=== PATIENT | female | born 1965 ===

== ENCOUNTER 2017-05-08 23:47 | Inpatient (IN) | payer OTHER ==
[~2017-05-08] VITALS: Ht 172.7 cm; Wt 71.1 kg
--- NOTE | ~2017-05-08 | EC ---
PATIENT:MALOU BROWN DATE OF SERVICE: 05/09/17 SEX: F MEDICAL RECORD: [id number] DATE OF : 61 LOCATION:[facility] D230 AGE OF PATIENT: 51 ADMISSION DATE: 05/09/17 REFERRING PHYSICIAN: INTERPRETING PHYSICIAN: ERNST ALEJANDRO M.D. ECHOCARDIOGRAM REPORT ECHO CHARGES 4 ECHO COMPLETE CLINICAL DIAGNOSIS: OVERDOSE/RESP/ HX OF HTN/PULMONARY HTN/HEART MURMUR ECHOCARDIOGRAPHIC MEASUREMENTS (adult normal given) AC root (d.<3.7cm) 3.2 LV Septum d (<1.2 cm> 1.5 Valve Excursion 2.0 LV Septum (systole) 1.7 Left Atria (s.<4.0cm> 4.1 LVPW d(<1.2cm) 1.6 RV (d.<2.3cm) 3.5 LVPW (sytole) 1.8 LV diastole(<5.6CM) 5.1 MV E-F(>70mm/sec) LV systole 3.5 LVOT Diameter 1.9 MV exc.(>10mm) 1.4 Est.ejection fraction (50-75%) Pericardial Effusion N DOPPLER: LVIT A 86.0 E 106 LA RVSP 26 LVOT 100 AOP1/2T 816 Asc. Ao 159 RVOT 82 RA PA 107 AV Gradient Peak 10.06 AV Mean 5.48 AV Area 1.7 MV Gradient Peak 6.36 MV Mean 2.47 MV Area COMMENTS: Roadway Technician: Malia SRINIVASAN Procurement Officer:1 Dr. Curtis TAPE# PACS DATE OF SERVICE: 05/12/2017 REFERRING PHYSICIAN: Dr. Sen. INDICATION: Heart murmur. DESCRIPTION: Left ventricle demonstrates left ventricular hypertrophy. No wall motion abnormalities are noted. Estimated ejection fraction is 55%. Mitral valve is structurally normal. There is mild regurgitation noted. Left atrium is mildly dilated. The aortic valve is trileaflet. There is mild to moderate ECHOCARDIOGRAM REPORT [id number] MALOU BROWN insufficiency seen. There is no evidence of stenosis. Right ventricle is mildly dilated. Tricuspid valve is structurally normal. There is mild regurgitation seen. Right atrium is normal size. There is no pericardial effusion noted. IMPRESSION: 1. Left ventricular hypertrophy with preserved ejection of 55%. 2. Mild mitral regurgitation. 3. Mild to moderate aortic insufficiency. 4. Mild tricuspid regurgitation. TRANSINT:[id number] Voice Confirmation ID: [id number] DOCUMENT ID: [id number] ERNST ALEAJNDRO M.D. CC: [id number] DICTATION DATE: 05/12/171841 RANCH RIDER: 05/12/17 2354 DIS IN 05/12/17 [facility] [address] [id number]
[2017-05-09] VITALS (23 sets, daily range): BP systolic 109–143; BP diastolic 71–98; Ht 172.7 cm; Wt 71.1 kg
[2017-05-09 00:30] LABS: BASOPHILS 0.3 % (0-2); EOSINOPHILS 1.1 % (0-7); HEMATOCRIT 43.3 % (36.0-48.0); HEMOGLOBIN 15.3 g/dL (12-16); IMMATURE GRANULOCYTES 0.2 % (0-5); LYMPHOCYTES 37.6 % (15-50); MCH 31.1 pg (26.0-34.0); MCHC 35.3 g/dL (31.0-37.0); MEAN PLATELET VOLUME 9.2 fL (7.4-10.4); MONOCYTES 6.8 % (2-11); PLATELET COUNT 253 10x3/uL (130-400); RBC 4.92 10x6/uL (4.00-5.40); RDW 13.1 % (11.5-14.5); WBC 6.6 10x3/uL (4.8-10.8)
[2017-05-09 00:34] LABS: APPEARANCE CLEAR (CLEAR); COLOR DK YELLOW (YELLOW)
[2017-05-09 00:35] LABS: BILIRUBIN 1+ (NEGATIVE); GLUCOSE NEGATIVE (NEGATIVE); KETONE NEGATIVE (NEGATIVE); LEUKOCYTE ESTERASE NEGATIVE (NEGATIVE); NITRITE NEGATIVE (NEGATIVE); PROTEIN NEGATIVE (NEGATIVE); UROBILINOGEN NORMAL (NORMAL)
[2017-05-09 00:45] LABS: UDS - AMPHET NEGATIVE QUAL (NEGATIVE); UDS - BARB NEGATIVE QUAL (NEGATIVE); UDS - BENZO POSITIVE QUAL (NEGATIVE); UDS - COCAINE NEGATIVE QUAL (NEGATIVE); UDS - METH NEGATIVE QUAL (NEGATIVE); UDS - OPIATE POSITIVE QUAL (NEGATIVE); UDS - PCP NEGATIVE QUAL (NEGATIVE); UDS - THC NEGATIVE QUAL (NEGATIVE)
[2017-05-09 00:53] LABS: ALBUMIN 3.6 g/dL (3.4-5.0); ALKALINE PHOSPHATASE 98 U/L (46-116); ALT (SGPT) 27 U/L (10-68); CALC OSMOLALITY 288 mosm/kg (275-300); CARBON DIOXIDE 22.9 mmol/L (21.0-32.0); CHLORIDE - SERUM 106 mmol/L (98-107); CREATININE - SERUM 0.7 mg/dL (0.6-1.3); GLUCOSE 128 mg/dL (74-106); POTASSIUM - SERUM 3.3 mmol/L (3.5-5.1); PROTEIN - SERUM 7.3 g/dL (6.4-8.2); SODIUM 143 mmol/L (136-145); UREA NITROGEN 18 mg/dL (7-18); eGFR NON AFRICAN AMERICAN > 90 mL/min (90-120)
--- NOTE | 2017-05-09 04:00 | NUR ---
0400: Pt rec'd from ER via STR and placed in room 2309 x4 RNs. All monitors established and alarms set.
--- NOTE | 2017-05-09 04:15 | NUR ---
0415: Pt thrashing in bed from side to side. Pt does not follow commands. Pt arrived from ER sedated with Diprivan at max 75 mcg/kg/min. Pt moves x4 extrem vs gravity and pulls vs restraints. Pupils CARLIE+ bilat. Breathing via 8.0fr/23cm ETT with Vent AC TV550 R16 FIO2 30 P5. Pt RR 16-18x with SPO2 99%. Lungs clear bilat with auscultation. MMP and no cyanosis noted. S1S2 ST 100 bpm on CM. PPPx4=bilat. ABD soft NT BS active x4. OGT to LIS with minimal return. Clancy to gravity >30 cc/hr yellow UOP. SR up x2, Bed Alarm on, SCDs in room not placed at this time bc of pt aggitation.
--- NOTE | 2017-05-09 04:30 | NUR ---
0430: Increased Diprivan to 100 mcg/kg/hr. Pt remains thrashing in bed side to side and pulling at line and tubes.
--- NOTE | 2017-05-09 06:00 | NUR ---
0600: Pt belongings rec'd from ER. Pt has belongings bag with shoes, pants, and shirt. Pt had number of medications counted by ER and sent pharm. Pharm list placed on chart.
[2017-05-09] MEDS ORDERED: NEURONTIN 300300 MG PO (10:47)
[2017-05-09] MEDS ORDERED: FUROSEMIDE40 MG PO (10:48)
[2017-05-09] MEDS ORDERED: VISTARIL50 MG PO (10:51)
[2017-05-09] MEDS ORDERED: CYCLOBENZAPRINE5 MG PO (10:52)
[2017-05-09] MEDS ORDERED: LISINOPRIL5 MG (10:53)
[2017-05-09] MEDS ORDERED: MOBIC7.5 MG PO (10:54)
[2017-05-09] MEDS ORDERED: ZOLOFT50 MG PO (10:54)
[2017-05-09] MEDS ORDERED: TESSALON PERLE100 MG PO (10:54)
[2017-05-09] MEDS ORDERED: NEXIUM40 MG (10:55)
[2017-05-09] MEDS ORDERED: ZYLOPRIM100 MG PO (10:55)
[2017-05-09] MEDS ORDERED: REMERON30 MG PO (10:56)
[2017-05-09] MEDS ORDERED: CYCLOBENZAPRINE5 MG (10:56)
[2017-05-09] MEDS ORDERED: COLCRYS0.6 MG PO (10:56)
[2017-05-09] MEDS ORDERED: VENTOLIN HFA18 GM INH (11:05)
[2017-05-09] MEDS ORDERED: BENADRYL25 MG PO (11:12)
[2017-05-09] MEDS ORDERED: ELLIPTA (11:16)
[2017-05-09] MEDS ORDERED: BREO ELLIPTA 11 EACH INH (11:17)
[2017-05-09] MEDS ORDERED: LEVOXYL150 MCG PO (13:41)
[2017-05-09] MEDS ORDERED: NORCO 7.5/325 T1 TA1 PO (13:43)
[2017-05-09] MEDS ORDERED: AMITRIPTYLINE H50 MG PO (13:44)
--- NOTE | 2017-05-09 13:53 | NUR ---
OPEN EYES RANDOMLY, MOVES ALL EXTREMITES. DOSE MAKE EYE CONTACT. LESS RESTLESS AND AGITIATED WITH FENTANYL GTT AT 100 MCG HOUR . DIPRIVAN AT 50 MCG KG MIN. ATIVAN EARLY IN SHIFT HAD NO EFFECT ON PATIENT. CONTINUED TO BE RESTLESS. ETT SECURE TO VENT WILL BREATH OVER THE VENT WHEN AGITATED. BILATERAL LUNG SOUNDS EQUAL AND CLEAR, ETT ADVANCED TO 26 CM. AND NG TUBE ADVACED. ORAL NG TUBE WITH BROWN, RED DRAINAGE, GOOD AIR HEARD IN ABD. SMALL AMOUNT OF DRAINAGE FROM NG TUBE. FLUSHES WITHOUT DIFFICULTY. ABD SOFT WITH BOWEL SOUNDS PRESENT. NO SKIN BREAKDOWN NOTED. COMPLETED BED BATH GIVEN. LINEN CHANGED. SCD ON LOWER LEGS. IV RIGHT FOREARM INFUSING WITH NS AT 200 ML HOUR, NOW A BANANA BAG AT 125 MG HOUR INFUSING. NO REDNESS OR SWELLING NOTED. FRANCIS CATH PATENT AND DRAINING CLOUDY CORINNA URINE. MOTHER AND FATHER AND DAUGHTER HERE QUESTIONS ANSWERED. HISTORY PROVIDED. MONITOR SR.
--- NOTE | 2017-05-09 20:00 | NUR ---
2000: Pt with occasional periods of thrashing in bed. Pt nods head to questions and indicates she her hips are hurting. Pt respositioned with pillow support. Increased Fentanyl for pain control.
--- NOTE | 2017-05-09 22:00 | NUR ---
2200: Pt coughing and vent alarm sounding. Increased Peak Pressures seen. In line sx produces scant amount of clear sx return. VAP tube sx with no return. oral care done.
--- NOTE | 2017-05-09 23:00 | NUR ---
2300: Clancy and [facility] [place] completed.
[2017-05-10] VITALS (18 sets, daily range): BP systolic 91–142; BP diastolic 60–85
--- NOTE | 2017-05-10 04:00 | NUR ---
0400: Cont to titrate Diprivan and Fentanyl for sedation. Pt easily awoken to slightest stimuli. Pt nods head to questions, but does not follow all commands. Pt will return to resting with eyes closed with reduced stimulation.
--- NOTE | 2017-05-10 05:00 | NUR ---
0500: Pt awake on vent with Diprivan and Fentanyl infusing. Pt indicates that she is allergic to Zofran and her back is itching. Pt repositioned for comfort, back rubbed. Pt moving self in bed. Pt will pull at wires and tubes though and remains in bilateral soft wrist restraints to prevent accidental removal of medically neccassary equipment.
--- NOTE | 2017-05-10 10:48 | NUR ---
ALL SEDATION TURNED OFF, PATIENT WAS PLACED ON CPAP PER VENT. EXTUBED WITHOUT DIFFICULTY PATIENT DEMANDING WANTS TO GO AND SMOKE, NICADERM PATCH ORDER AND PLACED ON LEFT UPPER ARM.EXPLAIN THERE IS NO SMOKING IN HOSPITAL. SHE CAN NOT LEAVE TO SMOKE. STATES SHE IS AGITATED AND HER BACK IS HURTING WANTS SOMETHING. DEMANDS FRANCIS BE REMOVED. FRANCIS ALFREDO WADE'Kaitlin. PATIENT FOUND UP OUT OF BED PUTTINGHER PANTIES ON WANTING A PHONE. AND HER MEDICATIONS. INFORMED THAT HER MEDS WHERE LOCKED UP AND SHE COULD GET THEM THURSDAY MORNING. WANTS TO KNOW WHAT TIME. NORCO 7.5 WITH TYLENOL GIVEN FOR BACK PAIN. HAIR BRUSHED PROVIDED TO BRUSH HER HAIR. WANTS MUCINEX FOR HER COUGH. DIET COLA PROVIDED. DRINKING WITHOUT DIFFICULTY SWALLOWING. SITTING UP IN BED . WARM BLANKET PROVIDED FOR COMFORT. EYE GLASSES PROVIDED AND HER DENTURES.
--- NOTE | 2017-05-10 12:01 | NUR ---
CALLED Courtney Gutiérrez HE STATES THAT HE HAS HER PURSE AND VALUABLES. STATES THAT HE TOLD HER MOTHER LAST NIGHT THAT HE HAD HER PURSE HE STATES THAT THE HOSPITALWOULD NOT LET HIS DAUGHTER LEAVE HER PURSE OR CLOTHES. PATIENT INFORMED THAT HER HAS HER PURSE. PATIENT IS CONCERN THAT HER RINGS ARE IN THERE. INSTRUCED TO DISCUSS WITH HER MOTHER BEFORE WE CALL HIM BACK.
--- NOTE | 2017-05-10 12:15 | NUR ---
DRINK DIET COKE AND ATE SOME PUDDING WITHOUT ANY DIFFICULTY SWALLOWING. VERY TALKATIVE. AND NERVOUS ACTING. VOIDED 200 CC DARK CORINNA URINE ON BSC
--- NOTE | 2017-05-10 13:31 | NUR ---
PATIENT DEMANDS IV BE TAKEN OUT SHE DOES NOT WANT. STATES SHE IS LEAVING HERE IN [address] VIRK PAGED. IV DC'S
--- NOTE | 2017-05-10 13:42 | NUR ---
vIs the patient Alert and Oriented? Yes 0 * How many steps to enter\exit or inside your home? Five 0 * PCP Denies having a PCP 0 * Pharmacy [facility] [place] 0 * Preadmission Environment Home with Family 0 * ADLs Independent 0 * Equipment Cane Nebulizer Oxygen 0 * Other Equipment patient states she has oxygen and nebulizer at home. States she walks w/ a cane due to arthritis occasionally 0 * List name and contact numbers for known caregivers / representatives who currently or will assist patient after discharge: Shivani Suárez- [facility]- [phone] 0 * Community resources currently utilized Other 0 * Please name any agencies selected above. [facility] in [place], [place] 0 * Additional services required to return to the preadmission environment? Yes 0 * Can the patient safely return to the preadmission environment? No 0 * Has this patient been hospitalized within the prior 30 days at any hospital? No 0
--- NOTE | 2017-05-10 13:43 | NUR ---
Met with the patient at the bedside. She was extubated at approximately noon. She is alert and sitting on the side of the bed. She knows where she is and is planning to go home at discharge. She states she harriet be going to her mothers in [facility]. Address [address] She says she is from her at this time. Anthony Chong is her second . His contact number is [phone]. She denies having a PCP. Denied any specialist but when questioned about counseling services states she sees MS Alan at [facility]. When questioned regarding DME stated she has O2 and a nebulizer. She has an appointment w/ [facility] "coming up". States she ambulates w/ a cane occasionally. Pharmacy - [facility] Patient wanted her 's phone number. CM stated he must give permission for her to have his number as they are . She now states she lives w/ him in [place], [place]. She now states that is where she is going at discharge. SHELLIE explained she will need to have a psych consult as her attempt was serious. SHELLIE also explained she was just extubated and we would need to follow her pulmonary status. Reminded her that DR Sen will be rounding to see her. She is wanting to leave. She says she understands. Stating she wants to speak with her because she wants him to pick her up. She states he also has her cell phone and purse. SHELLIE spoke with the primary nurse regarding above. She has spoken w/ the on the phone. The stated he had spoken with the pt's mother regarding plans. The stepdaughter reportedly wanted to have patient committed for mental health services and rehab. Awaiting the mother's visit today.
--- NOTE | 2017-05-10 14:22 | NUR ---
DRY HEAVING AND COMPLAINTING OF NAUSEA NOT SURE SHE CAN HOLD DOWN PILL ATIVAN 1 MG GIVEN, DR. VIRK NOTIFIED. PHENERGAN 25 MG Q 6 HOURS PRN IM ORDERED AND GIVEN. ORDER AND FACE SHEET FOR PSYCH CONSULT SENT TO [facility]
--- NOTE | 2017-05-10 16:32 | NUR ---
PATIENT TRYING TO LEAVE,PUTTING HER SHOES ON. REMOVED HER NICODEARM PATCH AND CONTINOUSLY REMOVING THE DELPHI PROGRAMMER STATES ITS ITCHING. REFUSED BATH. ORALCARE DONE DEODARANT PROVIDED. CONSTANTLY ON MOVE. DR. VIRK NOTIFIED STATES TO PUT HER ON 72 HOUR HOLD UNTIL PSYCH EVAL AND RECOMMENDATIONS ARE DONE TOMORROW. STATES SHE NEEDS SOMETHING DENIES EVER RECEIVING ANY VALIUM OR ANY OTHER MEDS. HALDOL 5 MG AND ATIVAN 1 MG PO GIVEN WITH WITNESS RADHA SNYDER. SECURITY AT PATIENT DOOR.
--- NOTE | 2017-05-10 17:10 | NUR ---
CM received telephone call from Denisa Shay, patient's daughter. CM had tried to return her request for call earlier. No answer at that time. The daughter wants her mother to go for drug rehab. She stated she has had a substance abuse problem for sometime and has never sought help. Denisa is 22 yrs old and she has a brother 19 years of age. She is very concerned about her mother. She states the patient has been for 1 1/2 - 2yrs. She does not think her mother has a PCP. She is not certain how she obtains her medications. She thinks the patient may take her 's meds. Discussed the family going to the attorney lawyer's office regarding commitment for drug rehab. There reportedly has been some discussion regarding the above. Denisa is not certain of the plan of pt's parents and her .
--- NOTE | 2017-05-10 18:06 | NUR ---
SUPPER TRAY SERVED PATIENT NOT WANTING TO EAT RIGHT NOW. LET TRAY IN ROOM FOR LATER. PATIENT WANTS HER IV RESTARTED TAKING PO FLUIDS WELL. PATIENT IS VERY ACTIVE IN ROOM.
--- NOTE | 2017-05-10 18:43 | NUR ---
COMPLIANTED OF NAUSEA [id number] MG IM GIVEN LEFT HIP. TAKING PO FLUIDS WELL
--- NOTE | 2017-05-10 19:00 | NUR ---
REPORT RECIEVED, INITIAL ASSESSMENT COMPLETE, PLEASE SEE FLOW SHEETS FOR DETAILS. C/O NV, CURRENTLY NAUSEATED. DENIES ANY PAIN/NEEDS ATT. BED LOW AND LOCKED, CALL LIGHT IN REACH. VSS ATT, WILL CPOC.
--- NOTE | 2017-05-10 20:10 | NUR ---
PAGED TANK COOPER DR FOR DR VIRK TO OK PT TO BE ON ELECTROLYTE PROTOCOL TO REPLACE LOW K+.
--- NOTE | 2017-05-10 20:16 | NUR ---
PER SYLVIA HYATT TO DC PAPCID AND TO PUT PT ON ELECTROLYTE PROTOCOL.
--- NOTE | 2017-05-10 20:19 | NUR ---
PER DR VIRK ORDER PO PEPCID 20MG BID.
--- NOTE | 2017-05-10 20:57 | NUR ---
PT TOOK MEDS WILLINGLY, DENIES ANY NEEDS ATT. ELECTROLYTE PROTOCOL FOLLOWED ATT. BED LOW AND LOCKED, CALL LIGHT IN REACH. WILL CPOC.
--- NOTE | 2017-05-10 23:00 | NUR ---
PT WATCHING TV. C/O PAIN, WILL GIVE PAIN MEDS PER ORDERS. VSS, BED LOW AND LOCKED, CALL LIGHT IN REACH. DENIES ANY OTHER NEEDS ATT. WILL CPOC.
--- NOTE | 2017-05-11 01:04 | NUR ---
PT C/O NAUSEA, GAVE PHENOGREN ORDERED.
--- NOTE | 2017-05-11 02:01 | NUR ---
PRBC STARTED. VSS. DENIES PAIN/NEEDS ATT. BED LOW AND LOCKED, CALL LIGHT IN REACH. WILL CPOC.
[2017-05-11 03:00] VITALS: BP 96/55
--- NOTE | 2017-05-11 03:57 | NUR ---
PT SLEEPING, NO S&S OF ACUTE DISTRESS NOTED. BED LOW AND LOCKED, CALL LIGHT IN REACH WILL CPOC.
[2017-05-11 05:23] LABS: BASOPHILS 0.1 % (0-2); EOSINOPHILS 1.4 % (0-7); HEMATOCRIT 36.6 % (36.0-48.0); HEMOGLOBIN 12.4 g/dL (12-16); IMMATURE GRANULOCYTES 0.3 % (0-5); LYMPHOCYTES 30.9 % (15-50); MCH 30.8 pg (26.0-34.0); MCHC 33.9 g/dL (31.0-37.0); MEAN PLATELET VOLUME 9.9 fL (7.4-10.4); MONOCYTES 5.7 % (2-11); NEUTROPHILS 61.6 % (40-80); PLATELET COUNT 211 10x3/uL (130-400); RBC 4.02 10x6/uL (4.00-5.40); RDW 13.5 % (11.5-14.5); WBC 7.8 10x3/uL (4.8-10.8)
--- NOTE | 2017-05-11 05:41 | NUR ---
PROVIDED PT FRESH GOWN, TOP SHEET, AND BLANKET PER REQUEST. PT ALSO C/O SHAKING, WILL GIVE ATIVAN PER ORDERS. BED LOW AND LOCKED, CALL LIGHT IN REACH. WILL CPOC.
[2017-05-11 06:04] LABS: CALC OSMOLALITY 275 mosm/kg (275-300); CALCIUM 8.3 mg/dL (8.5-10.1); CARBON DIOXIDE 26.8 mmol/L (21.0-32.0); CHLORIDE - SERUM 109 mmol/L (98-107); CREATININE - SERUM 0.3 mg/dL (0.6-1.3); POTASSIUM - SERUM 3.5 mmol/L (3.5-5.1); SODIUM 140 mmol/L (136-145); UREA NITROGEN 6 mg/dL (7-18); eGFR NON AFRICAN AMERICAN > 90 mL/min (90-120)
[2017-05-11 06:06] LABS: GLUCOSE 74 mg/dL (74-106)
[2017-05-11 07:00] VITALS: BP 125/68
--- NOTE | 2017-05-11 07:00 | NUR ---
PT AWAKE ALERT AND ORIENTED X4. COMPLAINS OF MILD ANXIETY BUT MOOD APPEARS TO BE STABLE AT THIS TIME. NORMAL SINUS ON MONITOR. PT IS UP AD FERNANDO AT THIS TIME AND ABLE TO USE BEDSIDE COMMODE WITHOUT DIFFICULTY. PT ON ROOM AIR AND IS HAVING NO SIGNS OF RESPIRATORY DISTRESS. COMPLETE SHIFT ASSESSMENT DOCUMENTED PER FLOWSHEET. WILL CONTINUE TO MONITOR CLOSELY.
--- NOTE | 2017-05-11 09:00 | NUR ---
PT SITTING UP EATING BREAKFAST INDEPENDENTLY. NO DEFICITS NOTED AND TOLERATING REGULAR DIET. WILL CONTINUE TO MONITOR
--- NOTE | 2017-05-11 10:28 | NUR ---
NUTRITION MONITORING & EVAL CHART REVIEWED, NURSING REPORTS PT EXTUBATED, TOLERATING REG DIET. WILL CONTINUE TO PROVIDE DIET, HONOR FOOD PREFERENCES. RD FOLLOWING
[2017-05-11 11:00] VITALS: BP 124/66
[2017-05-11 15:00] VITALS: BP 122/68
--- NOTE | 2017-05-11 15:00 | NUR ---
DR VRIK ROUNDED ON PT. CANDI WITH CASE MANAGEMENT CONTACTED [facility]. WAITING FOR APPROVAL TO SEND PT. WILL CONTINUE TO [facility]. PT APPEARS TO HAVE MILD ANXIETY AT THIS TIME BUT REMAINS STABLE. NO FURTHER CHANGES
--- NOTE | 2017-05-11 15:11 | NUR ---
05/11/2017 15:07 DCP: Discharge Planning Patient is agreeable to inpatient psych placement - referral faxed and called to No with [facility]. Waiting determination. CM will follow.
[2017-05-11 19:00] VITALS: BP 115/79
--- NOTE | 2017-05-11 19:00 | NUR ---
SHIFT ASSESSMENT COMPLETE. PT ALERT AND ORIENTED TO TIME, PLACE AND SITUATION. COMPLAINTS OF N/V, CHRONIC NECK AND BACK PAIN, AND STOMACH PAIN. TREATED WITH PRN MEDS. BED IN LOWEST POSITION. CALL LIGHT IN REACH. DOOR OPEN AND PT IN SIGHT OF THE NURSE'S STATION.
--- NOTE | 2017-05-11 21:00 | NUR ---
PT EXPRESSED HUNGER NEEDS. SNACKS AND DRINK PROVIDED. BSC EMPTIED. BED IN LOWEST POSITION. CALL LIGHT IN REACH. WILL CONTINUE TO MOITOR.
[2017-05-11 23:00] VITALS: BP 150/82
--- NOTE | 2017-05-11 23:00 | NUR ---
PT RESTING WITH BED IN LOWEST POSITION. COMPLAINING OF PAIN IN HER NECK AND BACK. REPOSITIONED FOR COMFORT. DOOR OPEN. WILL CONTINUE TO MONITOR.
--- NOTE | 2017-05-12 01:00 | NUR ---
PT OOB TO USE BSC. NO NEEDS AT THIS TIME. CALL LIGHT IN REACH. WILL CONTINUE TO MONITOR.
[2017-05-12 03:00] VITALS: BP 117/82
--- NOTE | 2017-05-12 03:00 | NUR ---
PT COMPLAINTS OF N/V, BACK PAIN AND NECK PAIN. REPOSITIONED PILLOWS AND TURNED OUT LIGHT. TX WITH MEDS. DOOR OPEN, CALL LIGHT IN REACH. WILL CONTINUE TO MONITOR.
--- NOTE | 2017-05-12 05:00 | NUR ---
PT OOB ON BSC. COFFEE PER REQUEST. BED IN LOWEST POSITION. WILL CONTINUE TO MONITOR.
[2017-05-12 05:06] LABS: BASOPHILS 0.3 % (0-2); EOSINOPHILS 1.5 % (0-7); HEMATOCRIT 36.8 % (36.0-48.0); HEMOGLOBIN 12.7 g/dL (12-16); IMMATURE GRANULOCYTES 0.3 % (0-5); LYMPHOCYTES 27.2 % (15-50); MCH 31.1 pg (26.0-34.0); MCHC 34.5 g/dL (31.0-37.0); MEAN PLATELET VOLUME 9.8 fL (7.4-10.4); MONOCYTES 6.7 % (2-11); PLATELET COUNT 234 10x3/uL (130-400); RBC 4.09 10x6/uL (4.00-5.40); RDW 13.2 % (11.5-14.5); WBC 7.8 10x3/uL (4.8-10.8)
[2017-05-12 05:25] LABS: CALC OSMOLALITY 278 mosm/kg (275-300); CALCIUM 9.1 mg/dL (8.5-10.1); CHLORIDE - SERUM 105 mmol/L (98-107); GLUCOSE 99 mg/dL (74-106); MAGNESIUM - SERUM 1.8 mg/dL (1.8-2.4); PHOSPHOROUS 4.4 mg/dL (2.5-4.9); SODIUM 141 mmol/L (136-145); UREA NITROGEN 6 mg/dL (7-18)
[2017-05-12 05:27] LABS: CREATININE - SERUM 0.4 mg/dL (0.6-1.3); POTASSIUM - SERUM 4.1 mmol/L (3.5-5.1); eGFR NON AFRICAN AMERICAN > 90 mL/min (90-120)
[2017-05-12 07:00] VITALS: BP 120/81
--- NOTE | 2017-05-12 07:00 | NUR ---
PT AWAKE ALERT AND ORIENTED X4. PT IS DEMONSTRATING ATTENTION SEEKING BEHAVIOR AT THIS TIME. EXPLAINED TO HER THAT WE ARE ATTEMPTING TO GET HER PLACED IN INPATIENT CARE TODAY AND SHE VERBALIZED UNDERSTANDING. WILL CONTINUE TO MONITOR CLOSELY AND ATTEMPT TO KEEP PT CALM AND IN ROOM. SHIFT ASSESSMENT DOCUMENTED PER FLOWSHEET.
--- NOTE | 2017-05-12 09:03 | NUR ---
05/12/2017 8:57 DCP: Discharge Planning CM spoke with No at [facility] - Patient was not accepted yesterday due to "being too busy to work it up". No stated if referral was resent today, they would evaluate. Referral resent. Referral also called & faxed to [facility] - They will evaluate for both [place] & [place] facilities. CM will follow.
--- NOTE | 2017-05-12 11:00 | NUR ---
PT APPEARS TO BE GETTING MORE ADGITATED. ATTEMPTING TO CALM PT AT THIS TIME. CANDI WITH CASE MANAGEMENT CONTINUING TO WORK ON INPATIENT PSYCH PLACEMENT.
--- NOTE | 2017-05-12 13:14 | NUR ---
05/12/2017 13:12 DCP: Discharge Planning Rec'd call from No with [facility] stating they do not accept patient's insurance, therefore unable to accept her at this time. Waiting determination from [facility]. CM will follow.
--- NOTE | 2017-05-12 13:55 | NUR ---
05/12/2017 13:53 DCP: Discharge Planning Rec'd call from Vinh with [facility] - Patient has been accepted to their [facility] to room 804. Notified patient - she is agreeable to POC. Nursing to call report to [phone]. Patient will transfer via ambulance.
--- NOTE | 2017-05-12 15:40 | NUR ---
DISCHARGE COMPLETE AND IN CHART. COPY IN DISCHARGE FOLDER WITH TRANSFER PAPERWORK. REPORT CALLED TO XIMENA LYONS AT [facility] IN [place]. TRANSFER VIA STRETCHER PER [facility]. GAVE PT BELONGINGS TO EMS TO TRANSFER WITH PT. PAPERWORK ALL COMPLETED AND SIGNED BY BE COHEN POLISHING MACHINE OPERATOR HELPER.
== END 2017-05-12 15:54 | disposition short-term general hospital (02) | DRG 917 ==
LOC: D.ER 23:47 → D.ICU 05-09 02:32
PROVIDERS: Family Medicine; Internal Medicine Pulmonary Disease; ADMIT Family Medicine
PROC: 0T9B70Z Drainage of Bladder with Drainage Device, Via Natural or Artificial Opening (ICD-10-PCS; principal; 2017-05-09)
PROC: 0BH17EZ Insertion of Endotracheal Airway into Trachea, Via Natural or Artificial Opening (ICD-10-PCS; 2017-05-09)
PROC: 5A1945Z Respiratory Ventilation, 24-96 Consecutive Hours (ICD-10-PCS; 2017-05-09)
DX: T40.602A Poisoning by unspecified narcotics, intentional self-harm, initial encounter (principal); J96.01 Acute respiratory failure with hypoxia; T42.4X2A Poisoning by benzodiazepines, intentional self-harm, initial encounter; T51.0X2A Toxic effect of ethanol, intentional self-harm, initial encounter; F10.20 Alcohol dependence, uncomplicated; F11.10 Opioid abuse, uncomplicated; Y90.3 Blood alcohol level of 60-79 mg/100 ml; I11.0 Hypertensive heart disease with heart failure; I50.9 Heart failure, unspecified; J44.9 Chronic obstructive pulmonary disease, unspecified; E87.6 Hypokalemia; E03.9 Hypothyroidism, unspecified; F32.9 Major depressive disorder, single episode, unspecified; F41.9 Anxiety disorder, unspecified; G47.00 Insomnia, unspecified; G25.81 Restless legs syndrome; F17.200 Nicotine dependence, unspecified, uncomplicated